=== PATIENT | female | born 1940 | race Caucasian/White ===

== ENCOUNTER → 2017-03-07 | Outpatient (CLI) | payer MEDICARE ==
--- NOTE | 2017-03-07 10:17 | MM ---
Reason for exam: additional evaluation requested from prior study. Last mammogram was performed 1 year ago. History: Patient is postmenopausal, has history of breast cancer at age 74, and has history of other cancer at age 73. Lumpectomy of the right breast, March 2015. Chemotherapy, 2014. Radiation therapy of the right breast, 2014. Physical Findings: Nurse did not find any significant physical abnormalities on exam. MG 3D Diag Mammo W/Cad REBEKAH Bilateral CC and MLO view(s) were taken. Prior study comparison: March 06, 2016, bilateral MG 3d diag mammo w/cad REBEKAH. February 16, 2015, bilateral MG diagnostic mammo w CAD REBEKAH. The breast tissue is heterogeneously dense. This may lower the sensitivity of mammography. No suspicious abnormality. Post therapy change on the right breast. No significant new findings when compared with previous films. These results were verbally communicated with the patient and result sheet given to the patient on 03/07/17. ASSESSMENT: Benign, BI-RAD 2 RECOMMENDATION: Follow-up diagnostic mammogram of both breasts in 1 year.
== END | disposition home or self-care (01) ==
LOC: RADMAMWWP 09:29
PROVIDERS: ATTEND Internal Medicine Hematology & Oncology
DX: Z12.31 Encounter for screening mammogram for malignant neoplasm of breast (principal); Z85.3 Personal history of malignant neoplasm of breast
CPT/HCPCS: G0204; G0279

== ENCOUNTER → 2018-03-11 | Outpatient (CLI) | payer MEDICARE ==
--- NOTE | 2018-03-11 11:41 | MM ---
Reason for exam: additional evaluation requested from prior study. Last mammogram was performed 1 year ago. History: Patient is postmenopausal, has history of breast cancer at age 74, and has history of other cancer at age 73. Lumpectomy of the right breast, March 2015. Chemotherapy, 2014. Radiation therapy of the right breast, 2014. Physical Findings: Nurse did not find any significant physical abnormalities on exam. MG 3D Diag Mammo W/Cad REBEKAH Bilateral CC and MLO view(s) were taken. Prior study comparison: March 07, 2017, bilateral MG 3d diag mammo w/cad REBEKAH. March 06, 2016, bilateral MG 3d diag mammo w/cad REBEKAH. There are scattered fibroglandular densities. Benign appearing bilateral calcifications, likely fat necrosis on the right. No suspicious abnormality. Right post therapy changes are noted. These results were verbally communicated with the patient and result sheet given to the patient on 03/11/18. ASSESSMENT: Benign, BI-RAD 2 RECOMMENDATION: Follow-up diagnostic mammogram of both breasts in 1 year.
== END | disposition home or self-care (01) ==
LOC: RADMAMWWP 10:52
PROVIDERS: ATTEND Radiology Diagnostic Radiology
DX: C50.411 Malignant neoplasm of upper-outer quadrant of right female breast (principal)
CPT/HCPCS: 77066; G0279; 77062

== ENCOUNTER → 2019-03-12 | Outpatient (CLI) | payer MEDICARE ==
--- NOTE | 2019-03-12 12:06 | MM ---
Reason for exam: additional evaluation requested from prior study. Last mammogram was performed 1 year ago. History: Patient is postmenopausal, has history of breast cancer at age 74, and has history of other cancer at age 73. Lumpectomy of the right breast, March 2015. Chemotherapy, 2014. Radiation therapy of the right breast, 2014. Physical Findings: Nurse did not find any significant physical abnormalities on exam. MG 3D Diag Mammo W/Cad REBEKAH Bilateral CC and MLO view(s) were taken. Prior study comparison: March 11, 2018, bilateral MG 3d diag mammo w/cad REBEKAH. March 07, 2017, bilateral MG 3d diag mammo w/cad REBEKAH. The breast tissue is heterogeneously dense. This may lower the sensitivity of mammography. Benign appearing bilateral calcifications. No suspicious abnormality. Post therapy change on the right. No significant new findings when compared with previous films. These results were verbally communicated with the patient and result sheet given to the patient on 03/12/19. ASSESSMENT: Benign, BI-RAD 2 RECOMMENDATION: Follow-up diagnostic mammogram of both breasts in 1 year.
== END | disposition home or self-care (01) ==
LOC: RADMAMWWP 09:30
PROVIDERS: ATTEND Radiology Diagnostic Radiology
DX: C50.911 Malignant neoplasm of unspecified site of right female breast (principal)
CPT/HCPCS: 77066; G0279; 77062

== ENCOUNTER → 2020-03-15 | Outpatient (CLI) | payer MEDICARE ==
--- NOTE | 2020-03-15 11:47 | MM ---
Reason for exam: additional evaluation requested from prior study. Last mammogram was performed 1 year ago. History: Patient is postmenopausal, has history of breast cancer at age 74, and has history of other cancer at age 73. Lumpectomy of the right breast, March 2015. Chemotherapy, 2014. Radiation therapy of the right breast, 2014. Physical Findings: Nurse did not find any significant physical abnormalities on exam. MG 3D Diag Mammo W/Cad REBEKAH Bilateral CC and MLO view(s) were taken. Prior study comparison: March 12, 2019, bilateral MG 3d diag mammo w/cad REBEKAH. March 11, 2018, bilateral MG 3d diag mammo w/cad REBEKAH. There are scattered fibroglandular densities. Post surgical and post therapy changes right breast. Very slowly progressing fat necrosis calcifications on the right. 11 o'clock calcifications on the left unchanged from 2017. No significant new findings when compared with previous films. These results were verbally communicated with the patient and result sheet given to the patient on 03/15/20. ASSESSMENT: Benign, BI-RAD 2 RECOMMENDATION: Follow-up diagnostic mammogram of both breasts in 1 year.
== END | disposition home or self-care (01) ==
LOC: RADMAMWWP 10:49
PROVIDERS: ATTEND Radiology Diagnostic Radiology
DX: C50.911 Malignant neoplasm of unspecified site of right female breast (principal)
CPT/HCPCS: 77066; G0279; 77062

== ENCOUNTER → 2021-03-16 | Outpatient (CLI) | payer MEDICARE ==
--- NOTE | 2021-03-16 11:47 | MM ---
Reason for exam: additional evaluation requested from prior study. Last mammogram was performed 1 year ago. History: Patient is postmenopausal, has history of breast cancer at age 74, and has history of other cancer at age 73. Lumpectomy of the right breast, March 2015. Chemotherapy, 2014. Radiation therapy of the right breast, 2014. Physical Findings: Nurse did not find any significant physical abnormalities on exam. MG 3D Diag Mammo W/Cad REBEKAH Bilateral CC and MLO view(s) were taken. Prior study comparison: March 15, 2020, bilateral MG 3d diag mammo w/cad REBEKAH. March 12, 2019, bilateral MG 3d diag mammo w/cad REBEKAH. March 11, 2018, bilateral MG 3d diag mammo w/cad REBEKAH. The breast tissue is heterogeneously dense. This may lower the sensitivity of mammography. Post surgical changes right breast upper outer quadrant. No significant new findings when compared with previous films. These results were verbally communicated with the patient and result sheet given to the patient on 03/16/21. ASSESSMENT: Benign, BI-RAD 2 RECOMMENDATION: Routine screening mammogram of both breasts in 1 year.
== END | disposition home or self-care (01) ==
LOC: RADMAMWWP 10:52
PROVIDERS: ATTEND Radiology Diagnostic Radiology
DX: R92.2 Inconclusive mammogram (principal); Z85.3 Personal history of malignant neoplasm of breast; Z78.0 Asymptomatic menopausal state
CPT/HCPCS: 77066; G0279; 77062

== ENCOUNTER → 2022-03-21 | Outpatient (CLI) | payer MEDICARE ==
--- NOTE | 2022-03-21 11:21 | MM ---
Reason for Exam: Follow-up at short interval from prior study. Last screening mammogram was performed 12 month(s) ago. Patient History: Menarche at age 15. First Full-Term at age 22. Postmenopausal. Patient has history of breast feeding. Other cancer, age 73. Breast cancer, age 74. 03/2015, Lumpectomy on the Right side. 2014, Radiation Therapy on the right side. 2014, Chemotherapy. Prior Study Comparison: 02/16/2015 Bilateral Diagnostic Mammogram, [facility]. 02/16/2015 Right Diagnostic Ultrasound, [facility]. 03/06/2016 Bilateral Diagnostic Mammogram, [facility]. 03/07/2017 Bilateral Diagnostic Mammogram, [facility]. 03/11/2018 Bilateral Diagnostic Mammogram, [facility]. 03/12/2019 Bilateral Diagnostic Mammogram, [facility] 03/15/2020 Bilateral Diagnostic Mammogram, [facility]. 03/16/2021 Bilateral Diagnostic Mammogram, [facility]. Tissue Density: There are scattered fibroglandular densities. Findings: Analyzed By CAD. Postsurgical and posttreatment changes right breast. Unchanged fat necrosis calcifications at the surgical site. Coarse grouped microcalcifications 12:00 left breast remain unchanged. Also unchanged is subtle underlying isodense to low density nodularity in the left breast more apparent on the 3-D images. No significant change from prior exams. Overall Assessment: Benign, BI-RAD 2 Management: Screening Mammogram of both breasts in 1 year. 1. Patient should continue monthly self breast exams. 2. A clinical breast exam by your physician is recommended on an annual basis. 3. This exam should not preclude additional follow-up of suspicious palpable abnormalities. Results were given to the patient verbally at the time of exam. Electronically signed and approved by: Rudy Zurita M.D. Radiologist
== END | disposition home or self-care (01) ==
LOC: RADMAMWWP 10:44
PROVIDERS: ATTEND Radiology Diagnostic Radiology
DX: C50.411 Malignant neoplasm of upper-outer quadrant of right female breast (principal); Z78.0 Asymptomatic menopausal state
CPT/HCPCS: 77066; G0279; 77062

== ENCOUNTER → 2022-03-21 | Outpatient (CLI) | payer MEDICARE ==
[2022-03-21 18:14] LABS: HCT 45.3 % (37.2-46.3); HGB 15.1 g/dL (12.0-15.0); MCH 32.2 pg (27.0-32.0); MCHC 33.3 g/dL (32.0-37.0); MCV 96.6 fL (80.0-97.0); NRBC Per 100 WBC 0.6 /100 WBCS (0.0-0.0); Platelet Count 263 X 10*3/uL (140-440); RBC 4.69 X 10*6/uL (4.10-5.20); RDW 11.5 % (11.5-14.5); WBC 5.29 X 10*3/uL (4.50-10.00)
[2022-03-21 18:23] LABS: African American GFR (CKD) 81.3 (60.0-200.0); Anion Gap 10.9 mmol/L (10.00-18.00); Blood Urea Nitrogen 14.2 mg/dL (9.0-27.0); Carbon Dioxide 27.1 mmol/L (20.0-27.5); Non-African American GFR(CKD) 70.1 (60.0-200.0)
== END | disposition home or self-care (01) ==
LOC: LABPAT 11:22
PROVIDERS: ATTEND Internal Medicine Clinical Cardiac Electrophysiology
DX: Z01.812 Encounter for preprocedural laboratory examination (principal); I48.19 Other persistent atrial fibrillation; I38 Endocarditis, valve unspecified
CPT/HCPCS: 80051; 82565; 84520; 85027

== ENCOUNTER → 2022-03-31 | Outpatient (CLI) | payer MEDICARE ==
[2022-03-31 18:35] LABS: African American GFR (CKD) 80.7 (60.0-200.0); Anion Gap 9.7 mmol/L (10.00-18.00); BUN/Creat Ratio 17.5 Ratio (12.00-20.00); Calcium 9.5 mg/dL (8.7-10.3); Carbon Dioxide 29.3 mmol/L (20.0-27.5); Non-African American GFR(CKD) 69.6 (60.0-200.0)
== END | disposition home or self-care (01) ==
LOC: LABWHC1 11:11
PROVIDERS: ATTEND Internal Medicine Clinical Cardiac Electrophysiology
DX: E87.5 Hyperkalemia (principal)
CPT/HCPCS: 36415; 80048

== ENCOUNTER 2022-04-03 06:22 | Day surgery (SDC) | payer MEDICARE ==
[2022-03-30 14:22] VITALS: BMI 30.9
[~2022-04-03 06:22] MED LIST: SODIUM CHLORIDE 0.9% 1,000 ML IV SCH
[2022-04-03 06:55] VITALS: RESP 18; TEMP 98.5
[2022-04-03] MEDS ORDERED: PROPOFOL 10 MG/ML 20 ML VIAL IV ONE (08:35)
--- NOTE | 2022-04-03 08:40 | P.HPCAR ---
History of Present Illness This is Dr. Hung dictating an H/P on this patient The patient was interviewed and examined IMPRESSION / ASSESSMENT: Persistent atrial fibrillation, on xarelto Remains in atrial fibrillation on flecainide Hypertension PLAN: Electrical cardioversion today on flecainide and xarelto HPI Patient continues to have some dizzy spells and feels irregularity and palpitations Shortness of breath with exertion not addressed ROS: No fever chills or rigors, no cough, phlegm or expectoration, no nausea, vomiting or diarrhea, no hematuria, dysuria, no musculoskeletal complaints, no strokes or seizures, no skin lesions. EXAMINATION: 98.5F, blood pressure 192/83 mmHg no respiratory distress Rhythm is regular Heart sounds irregular no murmurs Clear lungs no rhonchi no crackles No lower extremity edema No JVD REVIEW OF LABS, ECG & MEDICAL DATA Initial potassium 6.0 Repeat potassium 3.9 Patient tolerating flecainide 50 mrem twice daily She is on losartan and metoprolol xarelto and flecainide Physical Exam Vitals: Vital Signs Temp Pulse Resp BP Pulse Ox 04/03/22 06:54 98.5 F 79 18 192/83 98 Intake and Output 04/02/22 04/03/22 04/03/22 22:59 06:59 14:59 Intake Total 20 0 Balance 20 0 Intake: IV 20 0 Other: Weight 81.8 kg Past Medical History Past Medical History: Cancer, Hypertension Additional Past Medical History / Comment(s): STATES PRE-DIABETIC (WATCHES DIET AND EXERCISES), HX OF SEVERAL SKIN CANCERS, RIGHT BREAST CANCER (FEB 2015). History of Any Multi-Drug Resistant Organisms: None Reported Past Surgical History: Breast Surgery Additional Past Surgical History / Comment(s): VARICOSE VEINS, PARTIAL RIGHT MASTECTOMY(03/29/2015). Past Anesthesia/Blood Transfusion Reactions: No Reported Reaction Past Psychological History: Anxiety Additional Past Alcohol Use History / Comment(s): SMOKED FOR 2 YEARS ONLY. - Past Family History Mother Family Medical History: No Reported History Physical Examination Vital Signs Temp Pulse Resp BP Pulse Ox 04/03/22 06:54 98.5 F 79 18 192/83 98 Intake and Output 04/02/22 04/03/22 04/03/22 22:59 06:59 14:59 Intake Total 20 0 Balance 20 0 Intake: IV 20 0 Other: Weight 81.8 kg Results 04/03/22 07:25 Comprehensive Metabolic Panel 04/03/22 Range/Units 07:25 Potassium 3.9 (3.5-5.1) mmol/L Current Medications Generic Name Dose Route Start Last Admin Trade Name Freq PRN Reason Stop Dose Admin Sodium Chloride 1,000 mls @ 50 mls/hr 04/03/22 06:06 04/03/22 06:55 Saline 0.9% IV 05/03/22 06:07 20 mls .Q20H APRIL Administration Intake and Output 04/02/22 04/03/22 04/03/22 22:59 06:59 14:59 Intake Total 20 0 Balance 20 0 Intake: IV 20 0 Other: Weight 81.8 kg 04/03/22 07:25
--- NOTE | 2022-04-03 08:57 | P.PRLE ---
RE: Belinda Maxwell Dear Jono Trevino Hans underwent electrical cardioversion to sinus rhythm successfully on flecainide 50 g twice daily She did have postconversion bradycardia I would recommend reducing the dose of metoprolol succinate to 25 mg by mouth daily while continuing on flecainide 50 mg twice daily She will continue xarelto on her antihypertensive medications as before Thank you for entrusting me with the care of the patient Warm regards Sincerely Jacobo Hung
--- NOTE | 2022-04-03 09:23 | P.EPPROC ---
- EP Procedure Note Electrophysiology Procedure Note: Diagnosis Persistent symptomatic atrial fibrillation Patient did not chemically convert with flecainide, 50 mg twice daily On xarelto 20 mg daily Procedure 1. Successful electrical cardioversion with a 200 J biphasic shock to sinus bradycardia and then sinus rhythm Post conversion pause of 3 seconds, primary Secondary shorter postconversion pauses 2. Post cardioversion twelve-lead EKG shows first-degree AV block SC interval 216 ms heart rate 61 beats a minute sinus mechanism Early repolarization abnormality with ST elevation in the lateral precordial leads and in the inferolateral leads Final diagnosis Persistent symptomatic atrial fibrillation unresponsive to flecainide only Successful electrical cardioversion Postconversion pauses both primary and secondary up to 3 seconds First-degree AV block Plan Reduce metoprolol succinate to 25 mg by mouth daily Continue xarelto 20 mg daily Continue flecainide 50 mg twice daily Continue antihypertensive therapy Follow-up with Dr. Hung in 4 weeks
[2022-04-03 09:42] VITALS: BP 130/63; PULSE 59
== END 2022-04-03 10:03 | disposition home or self-care (01) ==
LOC: CATHEP 06:22
PROVIDERS: ATTEND Internal Medicine Clinical Cardiac Electrophysiology
DX: I48.19 Other persistent atrial fibrillation (principal); Z79.01 Long term (current) use of anticoagulants
CPT/HCPCS: 92960; 84132; J2704

== ENCOUNTER → 2022-08-22 | Outpatient (CLI) | payer MEDICARE ==
[2022-08-22 19:27] LABS: ALT 72 U/L (8-44); AST 49 U/L (13-35); African American GFR (CKD) 80.7 (60.0-200.0); Albumin/Globulin Ratio 1.74 (1.60-3.17); Alkaline Phosphatase 110 U/L (41-126); BUN/Creat Ratio 19.13 Ratio (12.00-20.00); Blood Urea Nitrogen 15.3 mg/dL (9.0-27.0); Calcium 9.2 mg/dL (8.7-10.3); Carbon Dioxide 26.1 mmol/L (20.0-27.5); Chloride 106 mmol/L (96-109); Globulin 2.3 g/dL (1.6-3.3); Glucose 95 mg/dL (70-110); Non-African American GFR(CKD) 69.6 (60.0-200.0); Potassium 5.2 mmol/L (3.5-5.5); Sodium 144 mmol/L (135-145); Total Protein 6.3 g/dL (6.2-8.2)
== END | disposition home or self-care (01) ==
LOC: LABWHC1 11:19
PROVIDERS: ATTEND Nurse Practitioner Adult Health
DX: I10 Essential (primary) hypertension (principal); I48.19 Other persistent atrial fibrillation
CPT/HCPCS: 36415; 80053; 84443

== ENCOUNTER 2022-10-01 21:23 | Emergency (ER) | payer MEDICARE ==
--- NOTE | 2022-10-01 22:52 | ED ---
General Adult HPI - General Chief complaint: Upper Respiratory Infection Stated complaint: cough Time Seen by Provider: 10/01/22 22:34 Source: patient Mode of arrival: ambulatory Limitations: no limitations - History of Present Illness Initial comments: Patient presents to the ED with her for evaluation. Patient states that she has had a cough and congestion for the past 4 days or so. Patient states that her daughter is currently sick with similar symptoms as well. Patient states that she has also had right-sided facial "shingles" for the past 6 days, and she states that she is currently on treatment with with an antiviral medication. Patient denies having any pain, fever or chills, headache, otalgia, sore throat, chest pain, dyspnea, hemoptysis, palpitations, dizziness, abdominal pain, nausea/vomiting/diarrhea, dysuria or urinary symptoms, decreased urine output, leg or calf swelling or pain, or any other symptoms or complaints. Patient states that she has been vaccinated for Covid, as well as influenza. - Related Data Home Medications Medication Instructions Recorded Confirmed Ascorbic Acid [Vitamin C] 500 mg PO DAILY 03/30/22 03/30/22 Calcium Carbonate [Calcium] 1,200 mg PO DAILY 03/30/22 03/30/22 Cholecalciferol [Vitamin D3 (25 100 mcg PO DAILY 03/30/22 03/30/22 Mcg = 1000 Iu)] Cyanocobalamin/Cobamamide [Vitamin 1 tab SUBLINGUAL DAILY 03/30/22 03/30/22 B-12 5,000 Mcg Tab Sl] Flecainide Acetate 50 mg PO Q12H 03/30/22 04/03/22 Losartan Potassium [Cozaar] 100 mg PO HS 03/30/22 04/03/22 Multivit with Calcium,Iron,Min 1 each PO DAILY 03/30/22 03/30/22 [Women's Multivitamin] Rivaroxaban [Xarelto] 20 mg PO QAM 03/30/22 04/03/22 Super B 1 tab PO DAILY 03/30/22 03/30/22 Previous Rx's Medication Instructions Recorded Metoprolol Succinate [Metoprolol 25 mg PO DAILY #90 tab 04/03/22 Succinate ER] Allergies Allergy/AdvReac Type Severity Reaction Status Date / Time No Known Allergies Allergy Verified 10/01/22 21:44 Review of Systems ROS Statement: Those systems with pertinent positive or pertinent negative responses have been documented in the HPI. ROS Other: All systems not noted in ROS Statement are negative. Past Medical History Past Medical History: Cancer, Hypertension Additional Past Medical History / Comment(s): STATES PRE-DIABETIC (WATCHES DIET AND EXERCISES), HX OF SEVERAL SKIN CANCERS, RIGHT BREAST CANCER (FEB 2015). History of Any Multi-Drug Resistant Organisms: None Reported Past Surgical History: Breast Surgery Additional Past Surgical History / Comment(s): VARICOSE VEINS, PARTIAL RIGHT MASTECTOMY(03/29/2015). Past Anesthesia/Blood Transfusion Reactions: No Reported Reaction Past Psychological History: Anxiety Smoking Status: Never smoker Past Alcohol Use History: Occasional Past Drug Use History: None Reported - Past Family History Mother Family Medical History: No Reported History General Exam Limitations: no limitations General appearance: alert, in no apparent distress Head exam: Present: other (Vesicular lesions are noted to the patient's right lower face consistent with shingles) Eye exam: Present: normal appearance, EOMI ENT exam: Present: normal oropharynx, mucous membranes moist Neck exam: Present: other (Trachea is in midline) Respiratory exam: Present: normal lung sounds bilaterally. Absent: respiratory distress, wheezes, rales, rhonchi, stridor Cardiovascular Exam: Present: regular rate, normal rhythm, normal heart sounds, other (Normal radial pulses bilaterally) GI/Abdominal exam: Present: soft. Absent: distended, tenderness, guarding Extremities exam: Present: other (Negative Homans sign bilaterally). Absent: tenderness, pedal edema, calf tenderness Neurological exam: Present: alert, oriented X3 Psychiatric exam: Present: normal affect, normal mood Skin exam: Present: warm, dry, intact, normal color Course Vital Signs 10/01/22 10/02/22 21:44 00:21 Temperature 99.8 F H 98.9 F Pulse Rate 101 H 91 Respiratory 18 16 Rate Blood Pressure 181/77 167/80 O2 Sat by Pulse 96 98 Oximetry - Reevaluation(s) Reevaluation #1: 10/02/22 00:20 Patient denies development of any new symptoms while in the ED. She remains alert and breathing comfortably with a normal room air oxygen saturation. Patient and are aware of the patient's test results, and patient feels comfortable being discharged home at this time. She was counseled about URIs, and she was clearly explained return and follow-up instructions. She was instructed to follow up closely with her primary care provider. She feels comfortable with this plan. Medical Decision Making - Medical Decision Making Was pt. sent in by a medical professional or institution ([facility] [place], [employer], urgent care, hospital, or residential...) When possible be specific @ -No Did you speak to anyone other than the patient for history (EMS, parent, family, police, friend...)? What history was obtained from this source @ -No Did you review nursing and triage notes (agree or disagree)? Why? @ -I reviewed and agree with nursing and triage notes Were old charts reviewed (outside hosp., previous admission, EMS record, old EKG, old radiological studies, urgent care reports/EKG's, residential records)? Report findings @ -No old charts were reviewed Differential Diagnosis (chest pain, altered mental status, abdominal pain women, abdominal pain men, vaginal bleeding, weakness, fever, dyspnea, syncope, he adache, dizziness, GI bleed, back pain, seizure, CVA, palpatations, mental health, musculoskeletal)? @ -Upper respiratory infection, viral illness, Covid, influenza, bronchitis, p neumonia, COPD, asthma, shingles EKG interpreted by me (3pts min.). @ -None done X-rays interpreted by me (1pt min.). @ -Chest x-ray was reviewed myself, and I agree with the radiologist's interpretation as above. CT interpreted by me (1pt min.). @ -None done U/S interpreted by me (1pt. min.). @ -None done What testing was considered but not performed or refused? (CT, X-rays, U/S, labs)? Why? @ -None What meds were considered but not given or refused? Why? @ -None Did you discuss the management of the patient with other professionals (professionals i.e. [facility] [place], [employer], lab, RT, psych nurse, social services aide, link trainer mechanic, teacher, forestry technical officer, rehabilitation caseworker)? Give summary @ -No Was smoking cessation discussed for >3mins.? @ -No Was critical care preformed (if so, how long)? @ -No Were there social determinants of health that impacted care today? How? (Homelessness, low income, unemployed, alcoholism, drug addiction, transportation, low edu. Level, literacy, decrease access to med. care, snf, rehab)? @ -No Was there de-escalation of care discussed even if they declined (Discuss DNR or withdrawal of care, Hospice)? DNR status @ -No What co-morbidities impacted this encounter? (DM, HTN, Smoking, COPD, CAD, Cancer, CVA, ARF, Chemo, Hep., AIDS, mental health diagnosis, sleep apnea, morbid obesity)? @ -None Was patient admitted / discharged? Hospital course, mention meds given and route, prescriptions, significant lab abnormalities, going to OR and other pertinent info. @ -Patient's viral studies and chest x-ray are negative. Patient is breathing comfortably in the ED with a normal room air oxygen saturation. I suspect that the patient's symptoms are likely due to a viral upper respiratory infection. I do not suspect an emergent medical condition at this time. Will discharge patient home with her at this time. Undiagnosed new problem with uncertain prognosis? @ -No Drug Therapy requiring intensive monitoring for toxicity (Heparin, Nitro, Insulin, Cardizem)? @ -No Were any procedures done? @ -No Diagnosis/symptom? @ -Viral upper respiratory infection Acute, or Chronic, or Acute on Chronic? @ -Acute Uncomplicated (without systemic symptoms) or Complicated (systemic symptoms)? @ -default Side effects of treatment? @ -No Exacerbation, Progression, or Severe Exacerbation? @ -No Poses a threat to life or bodily function? How? (Chest pain, [place], [place], pneumonia, PE, COPD, DKA, ARF, appy, cholecystitis, CVA, Diverticulitis, Homicidal, Suicidal, threat to staff... and all critical care pts) @ -No - Lab Data Lab Results 10/01/22 Range/Units 22:35 Influenza Type A (PCR) Not Detected (Not Detectd) Influenza Type B (PCR) Not Detected (Not Detectd) RSV (PCR) Not Detected (Not Detectd) SARS-CoV-2 (PCR) Not Detected (Not Detectd) - Radiology Data Chest x-ray: 1. Presumed scarring right mid lung at the periphery. 2. Heart is top normal in size. 3. Osteopenia. 4. Kyphoscoliosis. Disposition Clinical Impression: Upper respiratory tract infection Disposition: HOME SELF-CARE Condition: Stable Instructions (If sedation given, give patient instructions): Upper Respiratory Infection (ED) Additional Instructions: Return to the ER immediately should you develop any significant pain, shortness of breath, feeling dizzy or faint, a high fever, or new or worsening symptoms. Follow up closely with your primary care provider. Is patient prescribed a controlled substance at d/c from ED?: No Referrals: Jono Mcdaniels MD [Primary Care Provider] - 1-2 days Time of Disposition: 00:25
--- NOTE | 2022-10-01 23:03 | XR ---
EXAM: XR Chest, 2 Views CLINICAL HISTORY: ITS.REASON XR Reason: cough, sputum TECHNIQUE: Frontal and lateral views of the chest. COMPARISON: No previous studies. FINDINGS: Lungs: Presumed scarring is noted laterally in the right midlung. Pleural space: Unremarkable. No pneumothorax. Heart: Heart is top normal in size. Mediastinum: Unremarkable. Bones/joints: Osteopenia. Kyphoscoliosis. Soft tissues: Surgical clips are noted near the right axilla. Vasculature: Atherosclerotic disease. Upper abdomen: Eventration right hemidiaphragm. IMPRESSION: 1. Presumed scarring right midlung at the periphery. 2. Heart is top normal in size. 3. Osteopenia. 4. Kyphoscoliosis.
[2022-10-02 00:22] VITALS: BP 167/80; PULSE 91; RESP 16; TEMP 98.9
== END 2022-10-02 00:24 | disposition home or self-care (01) ==
LOC: EC 21:23
DX: J06.9 Acute upper respiratory infection, unspecified (principal); I10 Essential (primary) hypertension; F41.9 Anxiety disorder, unspecified; Z79.899 Other long term (current) drug therapy; Z20.822 Contact with and (suspected) exposure to COVID-19
CPT/HCPCS: 71046; 87636; 99283

== ENCOUNTER → 2023-03-22 | Outpatient (CLI) | payer MEDICARE ==
--- NOTE | 2023-03-26 01:13 | MM ---
Reason for Exam: Screening (asymptomatic). Last screening mammogram was performed 12 month(s) ago. Patient History: Menarche at age 15. First Full-Term at age 22. Postmenopausal. Patient has history of breast feeding. Other cancer, age 73. Breast cancer, right, age 74. 03/2015, Lumpectomy on the Right side. 2014, Radiation Therapy on the right side. 2014, Chemotherapy. Prior Study Comparison: 03/15/2020 Bilateral Diagnostic Mammogram, [facility]. 03/16/2021 Bilateral Diagnostic Mammogram, [facility]. 03/21/2022 Bilateral MG 3D diag mammo w/cad REBEKAH, [facility]. Tissue Density: There are scattered fibroglandular densities. Findings: Analyzed By CAD. Postsurgical posttreatment change redemonstrated right breast with fat necrosis calcifications. Microclip right breast from prior biopsy. Unchanged coarse calcifications in the central 12:00 left breast. Just adjacent on the CC view, centrally middle depth, an area of asymmetric density appears more defined and incompletely disperses with 3-D images. Further evaluation recommended. Otherwise, no significant change. Overall Assessment: Incomplete: need additional imaging evaluation, BI-RAD 0 Management: Special View Mammogram of the left breast. Diagnostic Breast Ultrasound of the left breast. Additional views to include spot 3-D CC, 3-D CC rolled medial, and 3-D ML views. Targeted left breast ultrasound if any persisting abnormality. [facility] will attempt to contact patient to return for supplemental views and ultrasound if indicated. Electronically signed and approved by: Rudy Zurita M.D. Radiologist
== END | disposition home or self-care (01) ==
LOC: RADMAMWWP 12:18
PROVIDERS: ATTEND Internal Medicine Hematology & Oncology
DX: Z12.31 Encounter for screening mammogram for malignant neoplasm of breast (principal); C50.411 Malignant neoplasm of upper-outer quadrant of right female breast; Z78.0 Asymptomatic menopausal state
CPT/HCPCS: 77063; 77067

== ENCOUNTER → 2023-03-29 | Outpatient (CLI) | payer MEDICARE ==
--- NOTE | 2023-03-29 11:18 | MM ---
Reason for Exam: Additional evaluation requested from prior study. Last screening mammogram was performed less than 1 month ago. Patient History: Menarche at age 15. First Full-Term at age 22. Postmenopausal. Patient has history of breast feeding. Other cancer, age 73. Breast cancer, right, age 74. 03/2015, Lumpectomy on the Right side. 2014, Radiation Therapy on the right side. 2014, Chemotherapy. Prior Study Comparison: 03/16/2021 Bilateral Diagnostic Mammogram, [facility]. 03/21/2022 Bilateral MG 3D diag mammo w/cad REBEKAH, [facility]. 03/22/2023 Bilateral MG 3D screening mammo w/cad, [facility]. Tissue Density: Left: There are scattered fibroglandular densities. Findings: Analyzed By CAD. There is scattered asymmetries within the left breast. There is benign-appearing calcification bilaterally. No right breast suspicious masses. Overall Assessment: Incomplete: need additional imaging evaluation, BI-RAD 0 Management: Diagnostic Breast Ultrasound of the left breast. Results were given to the patient verbally at the time of exam. Patient should continue monthly self-breast exams. A clinical breast exam by your physician is recommended on an annual basis. This exam should not preclude additional follow-up of suspicious palpable abnormalities. Note on Carmelita scores and lifetime risk: 1. A Carmelita score greater than 3% is considered moderate risk. If this is the case, consider specialist referral to assess eligibility for a risk reducing agent. 2. If overall lifetime risk for the development of breast cancer is 20% or higher, the patient may qualify for future screening with alternating mammogram and breast MRI. Electronically signed and approved by: Trell Main DO
== END | disposition home or self-care (01) ==
LOC: RADMAMWWP 10:19
PROVIDERS: ATTEND Internal Medicine Hematology & Oncology
DX: R92.322 Mammographic fibroglandular density, left breast (principal); Z85.3 Personal history of malignant neoplasm of breast; Z78.0 Asymptomatic menopausal state
CPT/HCPCS: 77061; 77065

== ENCOUNTER → 2023-09-27 | Outpatient (CLI) | payer MEDICARE ==
--- NOTE | 2023-09-27 10:01 | USB ---
Reason for Exam: Follow-up at short interval from prior study. Patient History: Menarche at age 15. First Full-Term at age 22. Postmenopausal. Patient has history of breast feeding. Other cancer, age 73. Breast cancer, right, age 74. 03/2015, Lumpectomy on the Right side. 2014, Radiation Therapy on the right side. 2014, Chemotherapy. Technique: Method: Whole Breast Handheld. Prior Study Comparison: 03/21/2022 Bilateral MG 3D diag mammo w/cad REBEKAH, [facility]. 03/22/2023 Bilateral MG 3D screening mammo w/cad, [facility]. 03/29/2023 Left MG 3D work up w/cad , [facility]. Findings: The whole breast of the left breast, the axilla of the left breast and the retroareolar of the left breast were scanned. Anechoic well-circumscribed cyst left breast 1:00 5 cm from the nipple measures 5 x 6 mm. No solid or concerning masses seen.. Overall Assessment: Benign, BI-RAD 2 Management: Screening Mammogram of both breasts in 6 months. A clinical breast exam by your physician is recommended on an annual basis and results should be correlated with mammographic findings. This exam should not preclude additional follow-up of suspicious palpable abnormalities. Results were given to the patient verbally at the time of exam. Electronically signed and approved by: Matthew Salvador M.D. Radiologis
== END | disposition home or self-care (01) ==
LOC: RADUSWWP 09:20
PROVIDERS: ATTEND Internal Medicine Hematology & Oncology
DX: R92.8 Other abnormal and inconclusive findings on diagnostic imaging of breast (principal); Z78.0 Asymptomatic menopausal state; Z85.3 Personal history of malignant neoplasm of breast

== ENCOUNTER 2024-02-25 09:55 | Day surgery (SDC) | payer MEDICARE ==
[2024-02-20 08:55] VITALS: BMI 33.1
[2024-02-25] MEDS: SODIUM CHLORIDE 0.9% 1,000 ML IV SCH (10:03)
[2024-02-25] MEDS: IV FLUID CONTINUATION 1,000 ML IV ONE (10:06)
[2024-02-25 10:15] VITALS: RESP 16; TEMP 97.1
[2024-02-25] MEDS: LIDOCAINE 1% INJ 10MG/ML (20 ML MDV) SQ ONE (10:36)
[2024-02-25 10:57] VITALS: BP 138/72; PULSE 82
--- NOTE | 2024-02-25 11:12 | P.EPPROC ---
- EP Procedure Note Electrophysiology Procedure Note: Loop monitor implant Primary physicians: [facility] Librarian: Dr. Hung Indication: Atrial fibrillation management/detection Patient was brought to the EP lab in a fasting state. Written informed consent was obtained prior to the procedure. The left pectoral area was prepped and draped per protocol. Intravenous antibiotic was administered preoperatively. A subcutaneous Loop monitor was implanted successfully and the wound was closed per protocol. The device was programmed to detect significant gladys- arrhythmic and tachy-arrhythmic events, per protocol. Device and programming details: Atrial fibrillation detection management
== END 2024-02-25 11:09 | disposition home or self-care (01) ==
LOC: CATHEP 09:55
PROVIDERS: ATTEND Internal Medicine Clinical Cardiac Electrophysiology
DX: R55 Syncope and collapse
CPT/HCPCS: 33285

== ENCOUNTER → 2024-03-31 | Outpatient (CLI) | payer MEDICARE ==
--- NOTE | 2024-04-01 10:24 | MM ---
Reason for Exam: Screening (asymptomatic). Last screening mammogram was performed 12 month(s) ago. Patient History: Menarche at age 15. First Full-Term at age 22. Postmenopausal. Patient has history of breast feeding. Breast cancer, right, age 74. 03/2015, Lumpectomy on the Right side. 2014, Radiation Therapy on the right side. 2014, Chemotherapy. Prior Study Comparison: 03/21/2022 Bilateral MG 3D diag mammo w/cad REBE[facility], [facility]. 03/22/2023 Bilateral MG 3D screening mammo w/cad, [facility]. 03/29/2023 Left MG 3D work up w/cad , [facility]. Tissue Density: There are scattered areas of fibroglandular density. Findings: Analyzed By CAD. Right breast surgical clips.Left breast loop recorder. Right breast: There is no suspicious group of microcalcifications or new suspicious mass. Benign-appearing calcifications right breast. Left breast: There is no suspicious group of microcalcifications or new suspicious mass. Overall Assessment: Benign, BI-RAD 2 Management: Screening Mammogram of both breasts in [address] [facility] will attempt to contact patient to return for supplemental views and ultrasound if indicated. Patient should continue monthly self-breast exams. A clinical breast exam by your physician is recommended on an annual basis. This exam should not preclude additional follow-up of suspicious palpable abnormalities. Note on Carmelita scores and lifetime risk: 1. A Carmelita score greater than 3% is considered moderate risk. If this is the case, consider specialist referral to assess eligibility for a risk reducing agent. 2. If overall lifetime risk for the development of breast cancer is 20% or higher, the patient may qualify for future screening with alternating mammogram and breast MRI. [facility], , 04/01/2024 10:21 AM. Electronically signed and approved by: Trell Main DO
== END | disposition home or self-care (01) ==
LOC: RADMAMWWP 13:01
PROVIDERS: ATTEND Internal Medicine Hematology & Oncology
CPT/HCPCS: 77063; 77067